=== PATIENT | male | born 1945 | race Caucasian/White ===

== ENCOUNTER 2017-03-29 17:37 | Emergency (ER) | payer MEDICARE ==
[~2017-03-29] VITALS: Ht 182.9 cm; Wt 91.8 kg
[~2017-03-29 17:37] MED LIST: CEPHALEXIN500 MG OR; LORTAB5 PO
[2017-03-29 18:33] VITALS: BP 114/68
== END 2017-03-29 18:35 | disposition left against medical advice (07) ==
LOC: ED 17:37
DX: T17.928A Food in respiratory tract, part unspecified causing other injury, initial encounter (principal); I48.91 Unspecified atrial fibrillation; I10 Essential (primary) hypertension; M54.9 Dorsalgia, unspecified; G89.29 Other chronic pain; Z91.19 Patient's noncompliance with other medical treatment and regimen